=== PATIENT | female | born 1945 ===

== ENCOUNTER 2024-06-21 15:46 | Outpatient (RCR) | payer MEDICARE ==
[~2024-06-21 15:46] MED LIST: ASPIRIN81 MG PO; ATORVASTATIN CA20 MG PO; ESTRACE42.5 GM VG; LEVOTHYROXINE75 MCG PO; MAG GLYCINATE100 MG; METOPROLOL SUCC25 MG PO; MIRAPEX0.25 MG PO; MULTI-VITAMIN1 EACH PO; PROBIOTIC & AC1 EACH PO; PROTONIX20 MG PO; QUETIAPINE FUMA25 MG PO; VITAMIN B-121000 MCG PO; VITAMIN B-650 MG PO; VITAMIN D31 ML
== END 2024-06-22 ==
LOC: PT 15:46
PROVIDERS: ATTEND Internal Medicine
DX: R53.1 Weakness (principal); J18.9 Pneumonia, unspecified organism; M62.82 Rhabdomyolysis; R26.9 Unspecified abnormalities of gait and mobility

== ENCOUNTER 2024-09-21 14:00 | Outpatient (RCR) | payer MEDICARE | END 2024-09-22 | LOC: PT 14:00 | PROVIDERS: ATTEND Internal Medicine | DX: J18.9 Pneumonia, unspecified organism (principal); R53.1 Weakness; R26.89 Other abnormalities of gait and mobility; M62.82 Rhabdomyolysis ==